=== PATIENT | female | born 1985 | race Caucasian/White ===

== ENCOUNTER 2017-05-31 01:34 | Inpatient (IN) ==
--- OUTSIDE RECORDS SUMMARY | 2017-05-31 02:41 | External Medical Summary | Continuity of Care Document ---
:1985 Author Organization [facility] Address [address] [place], [place] [address] Phone Care Team Providers Name Role Phone Natanael Nunez MD Unavailable Unavailable Allergies, Adverse Reactions, Alerts Substance Reaction Severity Status No Known Drug Allergies Unknown Active Medications Medication Instructions Dosage Effective Dates Status Comments (start - stop) Formula take 1 tablet by Not Available - Active tablet oral route every day cod liver oil - Active capsule Herbal Supplements - Active TABLET [place] DHA 92 mg (43 - Active mg-22 mg-10 mg-17 mg) chewable tablet Problems Condition Effective Dates (start - stop) Clinical Status Follow-Up, Routine - Pap Smear Screening, Cervix - Encounter for suprvsn of normal - , first trimester 11 weeks gestation of - Maternal care for excess growth, - second tri, unsp 19 weeks gestation of - Maternal care for excess growth, - second tri, unsp 26 weeks gestation of - Encounter for suprvsn of normal - , third trimester 30 weeks gestation of - Active Procedures Procedure Date Unknown Results Test Name Date and Time Measure Units Reference Range Abnormal Flag Comments Unknown Advance Directives Directive Yes / No Effective Date File Name Unknown Encounters Encounter Practice Location Reason(s) Diagnoses Date Provider Care Description For Visit Team Members [facility] Encounter for Feb- Vega In [place] suprvsn of 2-201 [facility], normal 7 [address], , third [place], [place], [id number] Center [id number], weeks gestation Osei Rivesr of 120, tel:[phone] [facility] [address] [place], [id number] , [place]. tel: [phone] Marlo Hamilton Maternal care Nov-2 Vega In Womens Ultrasound for excess 2-201 [facility]. [facility] [place], growth, second 7 [address], tri, unsp26 [place], [place], weeks gestation Center [id number], of Osei Rivers [place] 120, tel:[phone] [facility] [address] [place], [id number] , [place]. tel: [phone] Marlo Hamilton Nov-1 Vega In Womens 6-201 [facility]. [facility], 7 700 [address], [place], [place], Center [id number], Osei Rivers [place] 120, tel:[phone] [place] [address] [place], [id number] , [place]. tel: [phone] Marlo Hamilton Maternal care Oct-0 Vega In Womens for excess 3-201 [facility]. [facility] [place], growth, second 7 [address], tri, unsp19 [place], weeks gestation Center , of Osei Rivers [place] 120, tel:[phone] [address], [id number] , [place]. tel: [phone] Marlo Hamilton Pap Smear Aug-0 Vega In Womens Screening, 8- [facility]. [facility], CervixEncounter 7 700 [address], for suprvsn of [place], [place], normal Center [id number], , first Osei Rivers [email or web address] 120, tel:[phone] weeks gestation [facility] [address] of [place], [id number] , [place]. tel: [phone] Marlo Hamilton Mar- Renee In Womens Follow-Up, 6-201 Regine. [facility] JASWINDER, Routine 6 700 [address], [place], [place], Center [id number], Osei Rivers [place] 120, tel:+[phone] [address]so[address], [id number] , [place]. tel:[phone] Marlo Hamilton Apr-2 Holdeman In Womens 1-201 Yvette. [employer] [facility], 4 700 [address], [place], [place], [place] [id number], , [facility] 120, tel:[phone] [place] [address] [place], [id number] , [place]. tel: [phone] Marlo Hamilton Sep-1 Joey In Womens 0-201 Yvette. [employer] [facility], 3 700 [address], [place], [place] [id number], , [facility] 120, tel:[phone] [facility] [address] [place], [id number] , [place]. tel: [phone] Family History Family Member Diagnosis Age At Onset No family history of Colon Cancer No family history of Lung Disease No family history of Ovarian Cancer No family history of Kidney Problems No family history of Hypertension No family history of Epilepsy No family history of Uterine Cancer Maternal Grandmother Cancer, breast No family history of Osteoporosis No family history of Diabetes Mother Thyroid Disorder Maternal Grandmother Stroke Paternal Grandfather Stroke No family history of Cardiovascular Disease Immunizations Vaccine Date Status Comments Unknown Payers Payer name Insurance type Covered republican ID Authorization(s) Aena [id number] Social History Type Description Quantity Date Captured Unknown Vital Signs Date / Height Weight BMI Pulse Blood Temperature Respiratory Body Head BMI Time: Rate Pressure Rate Surface Circumference percentile Area Unknown Chief Complaint And Reason For Visit Unknown Chief Complaint And Reason For Visit Reason For Referral Reason For Referral Unknown Plan Of Care Date Type Action Status Future Order: Radiology Order Complete OB Ultrasound > 14 Ordered Weeks (82889) Date Type Problem Goal Intervention Status Start Date Unknown. History Of Present Illness Encounter Date Complaint History Of Present Illness This patient has no known history of present illness Functional Status Encounter Date Functional Assessment Cognitive Assessment Unknown Medications Administered Medication Instructions Dosage Effective Dates (start - stop) Status Comments Drug Treatment Unknown Instructions Date Instruction Additional Information HIV and other routine tests risk factors identified by history anticipated course of care nutrition and weight gain counseling, special diet toxoplasmosis precautions (cats / raw meat) sexual activity exercise indications for ultrasound influenza vaccine environmental / work hazards travel use of any medications (including supplements, vitamins, herbs, OTC drugs) domestic violence seat belt use childbirth classes / hospital facilities hospital registration genetic testing Zika virus assessment & precautions movement monitoring labor signs
--- OUTSIDE RECORDS SUMMARY | 2017-05-31 02:41 | External Medical Summary | Continuity of Care Document ---
:1985 Author Organization [facility] Allergies Active Description Code Type Severity Reaction Onset Reported/ Identified Relationship Clinical to Patient Status Yes No Known 49400 3 N/A N/A Drug 0 Allergies Medications There is no data. Problems Date Dx Attending Type Code Diagnosis Diagnosed By Coded 01/04/2015 Yvette Cook V28.3 Ultrasonic S Screening For Malformation 03/18/2017 Rebecca Vega O36.62x0 Maternal care for excess growth, second tri, unsp 03/18/2017 Rebecca Vega Z3A.26 26 weeks gestation of Procedures Code Description [place] [address] Ultrasnd 01/04/2015 exam of preg uterus, compl 83746 Ultrasnd 03/18/2017 exam of preg uterus, compl Results There is no data. Encounters ACCT No. Visit Discharge Status Pt. Type Provider Facility Loc./Unit Complaint Date/Time [id number] 05/19/2017 05/19/2017 [facility] Outpatient Vega, 08:25:00 23:59:59 Rebecca Ireland [id number] 05/12/2017 05/12/2017 [facility] Out[facility] Vega, 09:20:00 23:59:59 Rebecca Ireland [id number] 03/18/2017 03/18/2017 [facility] Outpatient Vega, 11:30:00 23:59:59 Rebecca Ireland [id number] 03/18/2017 03/18/2017 [facility] Outpatient Vega, 11:15:00 23:59:59 Rebecca Ireland [id number] 03/12/2017 03/12/2017 [facility] Outpatient Vega, 08:19:00 23:59:59 Rebecca Ireland [id number] 01/27/2017 01/27/2017 [facility] Outpatient Vega, 14:15:00 23:59:59 Rebecca Ireland [id number] 12/02/2016 12/02/2016 [facility] Outpatient Vega, 10:15:00 23:59:59 Rebecca Ireland [id number] 11/07/2015 11/07/2015 [facility] Outpatient Matty, 14:18:00 23:59:59 Teresa L [id number] 07/11/2015 07/11/2015 [facility] Outpatient Renee, 15:40:00 23:59:59 Regine [id number] 05/31/2015 05/31/2015 [facility] Outpatient Matty, 11:56:00 23:59:59 Teresa L [id number] 05/29/2015 05/29/2015 [facility] Outpatient Vega, 16:10:00 23:59:59 Rebecca Ireland [id number] 05/23/2015 05/23/2015 [facility] Outpatient Matty, 14:40:00 23:59:59 Teresa L [id number] 05/21/2015 05/21/2015 [facility] Outpatient Matty, 13:45:00 23:59:59 Teresa L [id number] 05/16/2015 05/16/2015 [facility] Outpatient Holdeman, 14:00:00 23:59:59 Yvette Poe [id number] 05/14/2015 05/14/2015 [facility] Outpatient Matty, 10:05:00 23:59:59 Teresa L [id number] 05/09/2015 05/09/2015 [facility] Outpatient Matty, 10:20:00 23:59:59 Teresa L [id number] 04/26/2015 04/26/2015 [facility] Outpatient Matty, 10:00:00 23:59:59 Teresa L [id number] 04/13/2015 04/13/2015 [facility] Outpatient Vega, 09:50:00 23:59:59 Rebecca Ireland [id number] 03/27/2015 03/27/2015 [facility] Outpatient Matty, 13:15:00 23:59:59 Teresa L [id number] 03/16/2015 03/16/2015 [facility] Outpatient Carlos, 14:00:00 23:59:59 Kevin Miller [id number] 02/15/2015 02/15/2015 [facility] Outpatient Foster, 15:00:00 23:59:59 Charlee Poe [id number] 02/15/2015 02/15/2015 [facility] Outpatient Holdeman, 11:15:00 23:59:59 Yvette Poe [id number] 01/04/2015 01/04/2015 [facility] Outpatient [place], 15:15:00 23:59:59 Yvette Poe [id number] 01/04/2015 01/04/2015 [facility] Outpatient [facility], 14:45:00 23:59:59 Yvette Poe [id number] 12/28/2014 12/28/2014 [facility] Outpatient [facility], 08:40:00 23:59:59 Yvette Poe [id number] 12/28/2014 12/28/2014 [facility] Outpatient [facility], 08:40:00 23:59:59 Yvette Poe
--- OUTSIDE RECORDS SUMMARY | 2017-05-31 02:41 | External Medical Summary | Continuity of Care Document ---
:1985 Author Organization [facility] Address [address] [place], [place] [address] Phone Care Team Providers Name Role Phone Natanael Nunez MD Unavailable Unavailable Allergies, Adverse Reactions, Alerts Substance Reaction Severity Status No Known Drug Allergies Unknown Active Medications Medication Instructions Dosage Effective Dates Status Comments (start - stop) Formula take 1 tablet by Not Available - Active tablet oral route every day cod liver oil - Active capsule Herbal Supplements - Active TABLET [place] DHA 92 mg (43 - Active mg-22 mg-10 mg-17 mg) chewable tablet Problems Condition Effective Dates (start - stop) Clinical Status Follow-Up, Routine - Pap Smear Screening, Cervix - Encounter for suprvsn of normal - , first trimester 11 weeks gestation of - Active Procedures Procedure Date Initial OB Visit No Charge - PEDODONTIST Pap Smear handling/transport Urine Culture Infct antign, chlamydia trac, ampl Neisseria Gonorrhoeae, Amplification OB Panel With An HIV Venpnctr fngr/heel/ear stick routne Cult, bactr, ident isolate, urine Results Test Name Date and Time Measure Units Reference Range Abnormal Flag Comments Panel Description: OBSTETRIC PANEL WHITE BLOOD CELL 6.6 Thousand/uL 3.8-10.8 N COUNT 11:23:00 RED BLOOD CELL 4.17 Million/uL 3.80-5.10 N COUNT 11:23:00 HEMOGLOBIN 13.4 g/dL 11.7-15.5 N 11:23:00 HEMATOCRIT 37.8 % 35.0-45.0 N 11:23:00 MCV 90.6 fL 80.0-100.0 N 11:23:00 MCH 32.1 pg 27.0-33.0 N 11:23:00 MCHC 35.4 g/dL 32.0-36.0 N 11:23:00 RDW 13.8 % 11.0-15.0 N 11:23:00 PLATELET COUNT 180 Thousand/uL 140-400 N 11:23:00 MPV 9.0 fL 7.5-12.5 N 11:23:00 ABSOLUTE 4745 cells/uL 0012-0168 N NEUTROPHILS 11:23:00 ABSOLUTE 1353 cells/uL 850-3900 N LYMPHOCYTES 11:23:00 ABSOLUTE 350 cells/uL 200-950 N MONOCYTES 11:23:00 ABSOLUTE 112 cells/uL 15-500 N EOSINOPHILS 11:23:00 ABSOLUTE 40 cells/uL 0-200 N BASOPHILS 11:23:00 NEUTROPHILS 71.9 % N 11:23:00 LYMPHOCYTES 20.5 % N 11:23:00 MONOCYTES 5.3 % N 11:23:00 EOSINOPHILS 1.7 % N 11:23:00 BASOPHILS 0.6 % N 11:23:00 ANTIBODY SCREEN, NO ANTIBODIES N RBC W/REFL ID, 11:23:00 DETECTED Reference range TITER AND AG No antibodies detected This assay is a screening test for the detection of red blood cell antibodies. The test is not to be used for pretransfusion screening or for the medical management of an alloimmunized . ABO GROUP O 11:23:00 RH TYPE RH(D) 11:23:00 POSITIVE RPR (DX) W/REFL NON-REACTIVE NON-REACTIV N TITER AND 11:23:00 E CONFIRMATORY TESTING HEPATITIS B NON-REACTIVE NON-REACTIV N SURFACE ANTIGEN 11:23:00 E RUBELLA ANTIBODY 3.80 index N Index (IGG) 11:23:00 Interpretation ----- <0.90 Not consistent with Immunity 0.90-0.99 Equivocal > or=1.00 Consistent with Immunity The presence of rubella IgG antibody suggests immunization or past or current infection withrubella virus.[place] [address]Tipxnah r: ANNIKA DAVISON DO,MPH Panel Description: HIV 1/2 ANTIGEN/ANTIBODY,FOURTH GENERATION W/RFL HIV NON-REACTIVE NON-REACTIVE N HIV-1 antigen and HIV-1/HIV- 2 antibodies were AG/AB, 11:23:00 notdetected. There is no laboratory evidence of 4TH GEN HIVinfection. PLEASE NOTE: This information has been disclosed toyou from records whose confidentiality may beprotected by state law. If your state requires suchprotection, then the state law prohibits you frommaking any further disclosure of the informationwithout the specific written consent of the personto whom it pertains, or as otherwise permitted by law.A general authorization for the release of medical orother information is NOT sufficient for this purpose. For additional information please refer tohttp://education.COINPLUS/faq/IHT972(This link is being provided for informational/educational purposes only.) The performance of this assay has not been clinicallyvalidated in patients less than 2 years old. REPORT COMMENT:FASTING:NOTest performed at [facility] [id number] [place] [address]Uuemqzrq: ANNIKA DAVISON DO,MPH Panel Description: Bacteria identified in Urine by Culture CULTURE, URINE, 11:30:00 SEE NOTE CULTURE, URINE, ROUTINE ROUTINE MICRO NUMBER: [id number] TEST STATUS: FINAL SPECIMEN SOURCE: URINE SPECIMEN QUALITY: ADEQUATE RESULT: Multiple organisms present, each less than 10,000 CFU/mL. These organisms, commonly found on external and internal genitalia, are considered to be colonizers. No further testing performed.REPORT COMMENT:RTest performed at [facility] [id number] [place] [address]Ztweulhi: ANNIKA DAVISON DO,MPH Panel Description: CHLAMYDIA/N. GONORRHOEAE RNA, TMA CHLAMYDIA NOT DETECTED NOT DETECTED N TRACHOMATIS RNA, 11:20:00 TMA NEISSERIA NOT DETECTED NOT DETECTED N GONORRHOEAE RNA, 11:20:00 TMA [id number] SEE NOTE This test was 11:20:00 performed using the APTIMA COMBO2 Assay([employer] The analytical performance characteristics of this assay, when used to test SurePath specimens havebeen determined by [employer]. Test performed at [facility] [address] [address]Rxbshtok: ANNIKA DAVISON DO,MPH Panel Description: Pap Smear With HPV Reflex If ASCUS Document Advance Directives Directive Yes / No Effective Date File Name Unknown Encounters Encounter Practice Location Reason(s) Diagnoses Date Provider Care Description For Visit Team Members Marlo Hamilton Pap Smear Vega In Womens Screening, -2016 Rebecca. [facility] JASWINDER, CervixEncounter [address], for suprvsn of [place], [place], normal , [place] [id number], first [email or web address] , [facility] weeks gestation 120, tel:[phone] of [place] [address] [place] [address], [id number] , [place]. tel: [phone] Marlo Hamilton Jun- Renee In Womens Follow-Up, -2016 Regine. [facility] JASWINDER, Routine 700 [address], [place], [place], [place] [id number], , [facility] [place] 120, tel:[phone], [id number] , [place]. tel: [phone] Marlo Hamilton Holdeman In Womens -2013 Yvette. [facility] [place], 700 [address], [place], [place] [id number], , [facility] [place] 120, tel:[phone], [id number] , [place]. tel: [phone] Marlo Hamilton Joey In Womens -2012 [facility] PA, 700 [address], [place], [place], [place] [id number], Dr [facility] [place] 120, tel:-[phone] Alfonso [address] [place], [id number] , . tel: [phone] Family History Family Member Diagnosis Age At [...] Unknown Payers Payer name Insurance type Covered democrat ID Authorization(s) Aetna [id number] Social History Type Description Quantity Date Captured Alcohol Use Details No Caffeine Use Details Unknown Tobacco Use Status Never smoked tobacco Smoking Status Never smoker Vital Signs Date / Height Weight BMI Pulse Blood Temperature Respiratory Body Head BMI Time: Rate Pressure Rate Surface Circumference percentile Area 139.70 21.8 / lbs 8 mm[Hg] 10:19 kg/m AM eter (2) Chief Complaint And Reason For Visit Unknown Chief Complaint And Reason For Visit Reason For Referral Reason For Referral Unknown Plan Of Care Date Type Action Status Appointment Zari Gutiérrez BOOKED Date Type Problem Goal Intervention Status Start [...]
--- OUTSIDE RECORDS SUMMARY | 2017-05-31 02:41 | External Medical Summary | Continuity of Care Document ---
:1985 Author Organization [facility] Address [address] [place], [place] [phone] Phone Care Team Providers Name Role Phone Natanael Nunez MD Unavailable Unavailable Allergies, Adverse Reactions, Alerts Substance Reaction Severity Status No Known Drug Allergies Unknown Active Medications Medication Instructions Dosage Effective Dates Status Comments (start - stop) Formula take 1 tablet by Not Available - Active tablet oral route every day cod liver oil - Active capsule Herbal Supplements - Active TABLET [place] DHA 92 mg (43 - Active mg-22 mg-10 mg-17 mg) chewable tablet Problems Condition Effective Dates (start - stop) Clinical Status Follow-Up, Routine - Maternal care for excess growth, - second tri, unsp 26 weeks gestation of - Pap Smear Screening, Cervix - Encounter for suprvsn of normal - , first trimester 11 weeks gestation of - Maternal care for excess growth, - second tri, unsp 19 weeks gestation of - Encounter for suprvsn of normal - , third trimester 30 weeks gestation of - Active Procedures Procedure Date Ultrasound exam of preg uterus, complete Results Test Name Date and Time Measure Units Reference Range Abnormal Flag Comments Unknown Advance Directives Directive Yes / No Effective Date File Name Unknown Encounters Encounter Practice Location Reason(s) Diagnoses Date Provider Care Description For Visit Team Members Marlo Hamilton Encounter for Vega In Womens suprvsn of 2-201 [facility] PA, normal 7 700 [address], , third [place], [place], [id number] Center [id number], weeks gestation Osei Rivers [place] of 120, tel:[phone] Alfonso, [address] [place], [id number] , [place]. tel: [phone] [facility] Maternal care Nov-2 Vega In Womens Ultrasound for excess 2-201 Rebecca. [facility] PA, growth, second 7 700 [address], tri, unsp26 [place], weeks gestation Center [id number], of Osei Rivers [place] 120, tel:[phone] [place] [address] [place], [id number] , [place]. tel: [phone] [facility] Maternal care Oct-0 Vega In Womens for excess 3-201 [facility]. [facility] PA, growth, second 7 [address], tri, unsp19 [place], weeks gestation Center [id number], of Osei Rivers [place] 120, tel:[phone] [address], [id number] , [place]. tel: [phone] Marlo Hamilton Pap Smear Aug-0 Vega In Womens Screening, 8-201 Rebecca. [facility] JASWINDER, CervixEncounter 7 [address], for suprvsn of [place], normal Center [id number], , first Osei Rivers [id number] 120, tel:[phone] weeks gestation Hamilton [address] of [place], [id number] , [place]. tel: [phone] Marlo Hamilton Mar-1 Renee In Womens Follow-Up, 6-201 [facility]. [facility] PA, Routine 6 700 [address], [place], [place], Center [id number], Dr Osei [place] 120, tel:[phone] [address], [id number] , [place]. tel: [phone] Marlo Hamilton Apr-2 Holdeman In Womens 1-201 Y[facility]. [facility] JASWINDER, 4 700 [address], [place], Center [id number], Dr Osei [place] 120, tel:[phone] Hamilton[address], [id number] , [place]. tel: [phone] Marlo Alfonso Sep-1 Joey In Womens 0-201 Yvette. [employer] JASWINDER, 3 700 [address], [facility] [id number], Osei Rivers [place] 120, tel:[phone] Alfonso [address] [place], [id number] , [place]. tel: [phone] Family History Family Member Diagnosis Age At [...] name Insurance type Covered republican ID Authorization(s) Aetna [id number] Social History Type Description Quantity Date Captured [...] Complete OB Ultrasound > 14 Ordered Weeks (23635) Date Type Problem Goal Intervention Status Start [...]
--- OUTSIDE RECORDS SUMMARY | 2017-05-31 02:41 | External Medical Summary | Continuity of Care Document ---
:1985 Author Organization [facility] Address [address] [place], [place] [phone] Phone Care Team Providers Name Role Phone Natanael Nunez MD Unavailable Unavailable Allergies, Adverse Reactions, Alerts Substance Reaction Severity Status No Known Drug Allergies Unknown Active Medications Medication Instructions Dosage Effective Dates Status Comments (start - stop) Formula take 1 tablet by Not Available - Active tablet oral route every day cod liver oil - Active capsule Herbal Supplements - Active TABLET [place] DHA 92 mg (43 - Active mg-22 mg-10 mg-17 mg) chewable tablet Problems Condition Effective Dates (start - stop) Clinical Status Follow-Up, Routine - Maternal care for excess growth, - second tri, unsp 19 weeks gestation of - Pap Smear Screening, Cervix - Encounter for suprvsn of normal - , first trimester 11 weeks gestation of - Active Procedures Procedure Date OB Visit No Charge Results Test Name Date and Time Measure Units Reference Range Abnormal Flag Comments Unknown Advance Directives Directive Yes / No Effective Date File Name Unknown Encounters Encounter Practice Location Reason(s) Diagnoses Date Provider Care Description For Visit Team Members [facility] Maternal care for Vega In [facility] -2017 [facility], growth, second 700 [address], tri, unsp19 weeks Medical [place], [place], gestation of [place] [id number], Osei i[place]vers [place] 120, tel:[phone] Alfonso [address], [id number] , [place]. tel:[phone] Marlo Hamilton Pap Smear Vega In Womens Screening, -2016 Rebecca. [facility] JASWINDER, CervixEncounter 700 [address], for suprvsn of [place], [place], normal , Center [id number], first [email or web address] , [facility] weeks gestation 120, tel:+[phone], [id number] , [place]. tel: [phone] Marlo Hamilton Jun-16 Renee In Women Follow-Up, -2016 Regine. [facility] JASWINDER, Routine 700 [address], [place], [place], Center [id number], , [facility] 120, tel:+[phone], [id number] , [place]. tel: [phone] Marlo Hamilton Jul- Holdeman In Womens -2013 Yvette. [facility] [place], 700 [address], [place], Center [id number], , [facility] 120, tel:[phone], [id number] , [place]. tel: [phone] Marlo Hamilton Dec- Holdeman In Womens -2012 Y[facility]. [facility] JASWINDER, 700 [address], [place], [place], [place] [id number], , [facility] 120, tel:[phone], [id number] , [place]. tel: [phone] Family History Family Member Diagnosis Age At [...] Unknown Payers Payer name Insurance type Covered libertarian ID Authorization(s) A[employer] [id number] Social History Type Description Quantity Date Captured Alcohol Use Details No Caffeine Use Details Unknown Tobacco Use Status Unknown Smoking Status Never smoker Vital Signs Date / Height Weight BMI Pulse Blood Temperature Respiratory Body Head BMI Time: Rate Pressure Rate Surface Circumference percentile Area 145.80 22.8 96/61 -2017 lbs 3 mm[Hg] 2:27 kg/m PM eter (2) Chief Complaint And Reason For Visit Unknown Chief Complaint And Reason For Visit Reason For Referral Reason For Referral Unknown Plan Of Care Date Type Action Status Unknown. Date Type Problem Goal Intervention Status Start [...]
--- OUTSIDE RECORDS SUMMARY | 2017-05-31 02:41 | External Medical Summary | Continuity of Care Document ---
:1985 Author Organization [facility] Address [address] [place], [place] [id number] Phone Care Team Providers Name Role Phone Natanael Nunez MD Unavailable Unavailable Allergies, Adverse Reactions, Alerts Substance Reaction Severity Status No Known Drug Allergies Unknown Active Medications Medication Instructions Dosage Effective Dates Status Comments (start - stop) Formula take 1 tablet by Not Available - Active tablet oral route every day cod liver oil - Active capsule Herbal Supplements - Active TABLET Wilson DHA 92 mg (43 - Active mg-22 mg-10 mg-17 mg) chewable tablet Problems Condition Effective Dates (start - stop) Clinical Status Follow-Up, Routine - Encounter for suprvsn of normal - , third trimester 30 weeks gestation of - Pap Smear Screening, Cervix - Encounter for suprvsn of normal - , first trimester 11 weeks gestation of - Maternal care for excess growth, - second tri, unsp 19 weeks gestation of - Maternal care for excess growth, - second tri, unsp 26 weeks gestation of - Active Procedures Procedure Date OB Visit No Charge Results Test Name Date and Time Measure Units Reference Range Abnormal Flag Comments Unknown Advance Directives Directive Yes / No Effective Date File Name Unknown Encounters Encounter Practice Location Reason(s) Diagnoses Date Provider Care Description For Visit Team Members Marlo Hamilton Encounter for [facility] suprvsn of 2-201 [facility], normal 7 [address], , third [place], [place], [email or web address] Center [id number], weeks gestation Osei Rivers of 120, tel:[phone] [place] [address] [place], [id number] , [place]. tel:[phone] [facility] Nov-2 [facility] Ultrasound for excess 2-201 [facility]AS[facility], growth, second 7 700 [address], tri, unsp26 [place], weeks gestation Center [id number], of Dr Osei [place] [address], tel:[phone] [place] [address] [place], [id number] , [place]. tel:[phone] [facility] Oct-0 [facility]ens for excess 3-201 [facility] JAS[facility], growth, second 7 700 [address], tri, unsp19 [place], weeks gestation Center [id number], of Osei Rivers [place] [address], tel:[phone] [address], [id number] , [place]. tel: [phone] Marlo Hamilton Pap Smear Aug-0 [facility] Screening, 8-201 [facility] JASWIND[facility], CervixEncounter 7 700 [address], for suprvsn of [place], normal Center [id number], , first Osei Rivers [email or web address] 120, tel:[phone] weeks gestation [facility] [address] of [place], [id number] , [place]. tel: [phone] Marlo Hamilton Mar-1 Renee In Womens Follow-Up, 6-201 [facility], Routine 6 700 [address], [place], Center [id number], Dr [address]se[address] [place] [address], tel:[phone], [id number] , [place]. tel:[phone] Marlo Hamilton Apr-2 [facility] In Womens 1-201 [facility] JASWINDER, 4 700 [address], [place], Center [id number], Dr [address]se[address] [place] [address], tel:[phone] [address], [id number] , [place]. tel: [phone] Marlo Alfonso Sep- Joey In Womens 0-201 [facility] JASWINDER, 3 700 [address], [facility] [id number], Osei [address] [place] [address], tel:[phone] [place] [address] [place], [id number] , [place]. tel: [phone] Family History Family Member Diagnosis Age At [...] Unknown Payers Payer name Insurance type Covered constitution party ID Authorization(s) [employer] [id number] Social History Type Description Quantity Date Captured Alcohol Use Details No Caffeine Use Details Unknown Tobacco Use Status Unknown Smoking Status Never smoker Vital Signs Date / Height Weight BMI Pulse Blood Temperature Respiratory Body Head BMI Time: Rate Pressure Rate Surface Circumference percentile Area 152.30 23.8 109/ lbs 5 mm[Hg] 11:58 kg/m AM eter (2) Chief Complaint And Reason For Visit Unknown Chief Complaint And Reason For Visit Reason For Referral Reason For Referral Unknown Plan Of Care Date Type Action Status Future Order: Radiology Order Complete OB Ultrasound > 14 Ordered Weeks ([id number]) Date Type Problem Goal Intervention Status Start [...]
[2017-05-31] MEDS ORDERED: ACETAMINOPHEN 500 MG TABLET PO PRN (03:16)
[2017-05-31] MEDS ORDERED: METHYLERGONOVINE 0.2 MG/ML INJECTION IM PRN (03:16)
[2017-05-31] MEDS ORDERED: CARBOPROST 250 MCG/ML INJECTION IM PRN (03:16)
[2017-05-31] MEDS ORDERED: MAG-AL + SIM ORAL LIQUID 30ml PO PRN (03:16)
[2017-05-31] MEDS ORDERED: CALCIUM CARBONATE Chewable 500mg TABLET PO PRN (03:16)
[2017-05-31] MEDS ORDERED: LIDOCAINE 1% (10mg/ml) 2mL INJ PF SDV ID PRN (03:16)
[2017-05-31] MEDS: LR 1,000 ML IV PRN ×2 (04:24→05:16)
[2017-05-31 04:48] VITALS: BMI 24.7
[2017-05-31] MEDS ORDERED: HYDROCORTISONE 2.5% CREAM 30gm RECTALLY PRN (11:09)
[2017-05-31] MEDS ORDERED: DiphenhydrAMINE 25 MG CAPSULE PO PRN (11:09)
[2017-05-31] MEDS ORDERED: HYDROCODONE/APAP 5mg/325mg TABLET PO PRN (11:09)
[2017-05-31] MEDS ORDERED: IBUPROFEN 800 MG TABLET PO PRN (11:09)
[2017-05-31] MEDS ORDERED: OXYTOCIN DRIP 30 UNIT/500 ML ML IV SCH (11:15)
[2017-05-31] MEDS ORDERED: ROPIVACAINE 1% 10MG/ML INJ 200 MG, SUFentanil 50 MCG in NS 100 ML EPI PRN (16:19)
[2017-05-31] MEDS ORDERED: DiphenhydrAMINE 50 MG/ML INJECTION IVP PRN (16:19)
[2017-05-31] MEDS ORDERED: NALOXONE 0.4 MG/ML INJECTION IVP PRN (16:19)
[2017-05-31] MEDS ORDERED: ONDANSETRON 4 MG/2 ML INJECTION IVP PRN (16:19)
--- NOTE | 2017-05-31 16:19 | Anesthesia Preoperative Report ---
Anesthesia Epidural/Spinal Rec - Date and Time Date: 05/31/17 Preoperative Diagnosis: Spont Labor Procedure: Labor Epidural Plan: Epidural - Vital Signs Vital Signs: Temperature 97.6 F 05/31/17 04:00 Pulse Rate 81 05/31/17 04:00 Respiratory Rate 14 05/31/17 04:00 Blood Pressure 117/76 05/31/17 04:00 Pulse Oximetry 100 05/31/17 04:00 NPO since: 0200 /Para: P:2 Heart Rate: 125 - Medictaions & Allergies Inpatient Medications: Current Medications Acetaminophen (Tylenol) 500 - 1,000 mg PO Q4H PRN PRN Reason: Pain Hydrocodone Bitart/Acetaminophen (Iuka 5/325) 1 - 2 tab PO Q4H PRN PRN Reason: Pain Al Hydroxide/Mg Hydroxide (Maalox Plus) 30 ml PO Q3H PRN PRN Reason: Indigestion Calcium Carbonate (Tums) 500 - 1,000 mg PO Q2H PRN PRN Reason: Indigestion Carboprost Tromethamine (Hemabate) 250 mcg IM O PRN PRN Reason: .Downtime Diphenhydramine HCl (Benadryl) 25 - 50 mg PO Q6H PRN PRN Reason: Itching Docusate Calcium (Surfak) 240 mg PO DAILY ATA Hydrocortisone (Anusol-Hc 2.5% Cream) 1 applic RECTALLY PRN PRN PRN Reason: Hemorrhoids Lactated Ringer's (Lactated Ringers) 1,000 mls @ 999 mls/hr IV .Q1H1M PRN Last Infusion: 05/31/17 10:30 Dose: Infused Ibuprofen (Motrin) 800 mg PO Q8H PRN PRN Reason: Pain Lidocaine HCl (Xylocaine-Mpf 1% Vial) 0.2 mg ID O PRN PRN Reason: IV Start Magnesium Hydroxide (Mom) 30 ml PO DAILY PRN PRN Reason: Constipation Methylergonovine Maleate (Methergine) 0.2 mg IM O PRN Misoprostol (Cytotec) 800 mcg NV ONCE PRN Phenylephrine HCl (Anusol Supp) 1 supp NV PRN PRN Allergies/Adverse Reactions: Allergies Allergy/AdvReac Type Severity Reaction Status Date / Time No Known Allergies Allergy Verified 05/31/17 08:21 - Home Medications Home Medications: Home Medications Medication Instructions Recorded Confirmed Type Bountiful-3 Fatty Acids/Fish Oil 1 cap PO DAILY #0 cap 08/24/13 History [Bountiful 3 1,000 mg Softgel] Vits W-Ca,Fe,Fa(<1MG) 1 tab PO DAILY #0 tab 08/24/13 History () Calcium Acetate 1 cap PO BID #270 cap 05/21/15 History Cod Liver Oil 2 tab PO DAILY #0 05/21/15 History Flavoring Agent [Raspberry] 2 tab PO DAILY #0 05/21/15 History Lactobacillus Combination No.4 2 - 4 tab PO DAILY #0 05/21/15 History [Probiotic] Minerals/Protein Supplement 1 tab PO DAILY #0 05/21/15 History [Provimin Powder] - Medical History Respiratory: Reports: Asthma (childhood/ excersize induced) Cardiovascular: DENIES: Abnormal EKG, Angina, Arrhythmia, Congestive Heart Failure, Coronary Artery Disease, Heart Murmur, Hypertension, Hypotension, High Cholesterol, Myocardial Infarction, Rheumatic Fever, Valvular Heart Disease, Other Gastrointestional: Reports: Gastroesophageal Reflux Disease (with ) Neuro/Musculoskeletal: Denies: HX.MS.OSAR, Back Problems, Cerebrovascular Accident, Depression, Headaches, Loss of Consciousness, Muscle Weakness, Neuromuscular Disorder, Paralysis, Paresthesia, Syncope, Seizures, Other Renal/Endocrine: DENIES: Diabetes Mellitus Type 1, Diabetes Mellitus Type 2, Renal Failure, Dialysis, Thyroid Disease, Weight Loss, Weight Gain, Other Other History: Reports: Now - Surgical History Reproductive Surgery/Treatment: DENIES: Section Anesthesia Reactions: None Hx Family Anesthesia Reaction: No History of Motion Sickness: No - Social History Smoking Status: Never smoker Substance Use Type: does not use - Pertinent Findings Lab Data: CBC and BMP 05/31/17 04:22 - Physical Exam Respiratory Exam: lungs clear, bilateral breath sounds equal Cardiovascular Exam: regular rate and rhythm, no murmur - Airway Assessment Mallampati Score: II TMD: 3 Fingerbreadths Neck Extension: good Overall Assessment: may be difficult intubation - ASA ASA Score: 2 - Discussion Discussion: Discussed risks/options/alternatives of anesthesia and questions answered. Patient consents. Nursing pain assessment noted. Anesthesia Discussion: spouse Attestation Statement: Prior to the delivery of any anesthetic medication, I examined the patient, developed the plan, obtained the patient's consent and discussed the risk and benefits of the procedure with the patient/guardian.
--- NOTE | 2017-05-31 17:31 | Anesthesia Postoperative Note ---
- Date and Time Date: 05/31/17 Time: 17:31 - Status Patient Participated in Evaluation: Patient Participated in Person Vital Signs: Temperature 98 F 05/31/17 15:15 Pulse Rate 76 05/31/17 15:15 Respiratory Rate 14 05/31/17 15:15 Blood Pressure 101/63 05/31/17 15:15 Pulse Oximetry 99 05/31/17 15:15 Respiratory Function: Airway Patent Cardiovascular Function: Regular Pulse Mental Status: Alert and Oriented Pain Intensity: 2 Hydration: Taking PO Fluids Complications During Recover: None Apparent - Follow-Up Instructions Instructions: Per Surgeon
--- NOTE | 2017-06-01 08:02 | Labor and Delivery Note ---
DATE OF DELIVERY 05/31/2017 DELIVERY NOTE Zari is a 32-year-old, 3, para 2 at 41 weeks 2 days gestational age, who presented to [facility] in spontaneous labor. She was GBS positive and refused IV antibiotics. She received an epidural. Since she would not let me give her IV antibiotics, I did not artificially rupture her membranes. She had protraction of dilation and refused Pitocin augmentation. She finally progressed on to complete dilation. She pushed for just a couple of contractions and had a spontaneous vaginal delivery in the LOVE position of a viable male infant, Apgars 7/9. There was a nuchal cord x 1 that was reduced. The baby was vigorous at delivery, so he was placed on mom's abdomen. The cord clamping was delayed for 10 minutes per patient's request. She also refused Pitocin. The placenta delivered spontaneously. She had a small left second-degree perineal laceration that was repaired. Mom and baby tolerated the delivery well. The baby has not been weighed yet or named. IRENE
--- NOTE | 2017-06-01 08:11 | OB/GYN Progress Note ---
OB-PP Progress Note - General PPD1 Maternal Group B Strep: Positive - Subjective Date: 06/01/17 Lochia: Moderate Pain: controlled (Uses lotion and rubs on her abdomen for pain. Refuses oral pain meds. ) Voiding: voiding Nausea or Vomiting Present: No - Objective Vital Signs: Last Vital Signs Temp 98.3 F 06/01/17 07:18 Pulse 66 06/01/17 06:53 Resp 14 06/01/17 06:53 BP 124/70 06/01/17 06:53 Pulse Ox 96 06/01/17 06:53 Urine Output: good General: alert and oriented Respiratory: non-labored Abdomen: fundus firm Extremities: non-tender Edema: none - Assessment Assessment: - Plan Plan: routine care (Plan for maternal dism. tomorrow. )
[2017-06-01] MEDS ORDERED: DOCUSATE CALCIUM 240 MG CAPSULE PO SCH (09:00)
[2017-06-01 14:38] VITALS: RESP 16
--- NOTE | 2017-06-02 08:15 | OB/GYN Progress Note ---
OB-PP Progress Note - General PPD2 Maternal Group B Strep: Positive Maternal blood type: O+ Maternal Rubella Status: Immune - Subjective Date: 06/02/17 Lochia: Minimal Pain: controlled (Patient is refusing Tylenol & Ibuprofen because she's taking her own supplements.) Voiding: voiding - Objective Vital Signs: Last Vital Signs Temp 97.8 F 06/02/17 07:40 Pulse 63 06/02/17 07:40 Resp 16 06/02/17 07:40 BP 111/77 06/02/17 07:40 Pulse Ox 97 06/02/17 07:40 General: alert and oriented Abdomen: fundus firm, non-tender Extremities: non-tender - Assessment Assessment: - Plan Plan: routine care, discharge home, continue PNV Recommended she not take her Goldenseal supplement while because it can cause kernicterus.
[2017-06-02 15:29] VITALS: BP 110/76; PULSE 84; TEMP 98.4; O2SAT 98
== END 2017-06-02 15:20 | disposition home or self-care (01) | DRG 775 ==
LOC: MC 02:36
PROVIDERS: ADMIT Obstetrics & Gynecology; ATTEND Obstetrics & Gynecology